=== PATIENT | male | born 1960 | race Caucasian/White ===

== ENCOUNTER 2019-01-16 06:11 | Emergency (ER) | payer OTHER ==
[~2019-01-16 06:11] MED LIST: CYC10 PO; CYCL-343 PO; CYCL10TA29 PO; DIA5 PO; HYDR-3503 PO; IBU800 PO; IBUP-1618 PO; IBUP600T22 PO; KET10 PO; LOR10/500 PO; LOR5 PO; LOR5/325 PO; METH4TAB57 PO; NAP250 PO; NAPR500T75 PO; OXYC-868 PO; PEN250 PO; PER PO; TRA50 PO; VAR1 PO; ZOLP-1 PO; ZOLP-350 PO
--- NOTE | 2019-01-16 06:13 | ER Report ---
History and Physical Time Seen By MD: 06:13 (KENISHA CHAUDHARY DO) Time Seen By MD: 07:04 (KYA OLVERA DO) HPI/ROS CHIEF COMPLAINT: Chest pain, left arm pain HISTORY OF PRESENT ILLNESS: 58-year-old male presents ambulatory to the ER with sudden onset of severe left chest pain and left arm pain and occasionally his left neck around 2 AM. Patient is a smoker. Patient has no previous cardiac h istory. Patient describes a squeezing sensation in his left bicep tendon arm that waxes and wanes like a blood pressure cuff going up and down. It went to work but was feeling dizzy, so he came back home. His brought him to the ER. Patient notes no diaphoresis or nausea. Patient notes no exertional component. Patient has a history of chronic back pain and takes Percocet twice daily. He's had 2 back surgeries and has a herniated disc compressing his sciatic nerve. Patient describes the pain in his chest as a soreness. Patient reports no infectious symptoms such as rhinitis, coughing, sore throat or fever. Patient quit smoking 2 weeks ago as been taking Chantix. REVIEW OF SYSTEMS: Respiratory: No cough, no dyspnea. Cardiovascular: As above Gastrointestinal: No vomiting, no abdominal pain. Musculoskeletal: No back pain. (KENISHA CHAUDHARY DO) HPI/ROS Please see Dr. Chaudhary's note (KYA OLVERA DO) Allergies: Coded Allergies: codeine (Verified Allergy, Intermediate, ITCHING, 01/16/19) gabapentin (Verified Adverse Reaction, Intermediate, "MAKES HIM MEAN AND ANGRY", 01/16/19) Home Meds Active Scripts Oxycodone/Acetaminophen (OXYCODONE/ACETAMINOPHEN 5MG/325 MG) 5 Mg/325 Mg Tab, 1- 2 TAB PO Q6H, #20 TAB One to 2 tabs every 6 hours as needed for severe pain. Prov:JOHN HAUSER [employer]ERIAL EMBALMER 01/01/15 Reported Medications Varenicline Tartrate (CHANTIX) 1 Mg Tablet, 1 MG PO BID 01/16/19 Discontinued Reported Medications Zolpidem Tartrate (AMBIEN) 5 Mg Tablet, 1 TAB PO QHS TAKE ONE TABLET BY MOUTH AT BED TIME 08/29/14 Past Medical/Surgical History Patient has past medical history of back pain, fibromyalgia. Patient has a surgical history tonsillectomy, back surgery, left ulna translocation surgery, hernia repair. Patient has a family history of cancer. Patient smokes tobacco, denies alcohol use or recreational drug use. (KENISHA CHAUDHARY DO) Reviewed Nurses Notes: Yes Old Medical Records Reviewed: Yes (KENISHA CHAUDHARY DO) Hx Smoking: Yes Smoking Status: Current: Every Day Smoker Exposure to Second Hand Smoke?: Yes Hx Substance Use Disorder: No Hx Alcohol Use: No (KENISHA CHAUDHARY DO) Constitutional Vital Sign - Last 24 Hours 01/16/19 01/16/19 01/16/19 01/16/19 06:14 06:15 06:30 06:41 Temp 97.8 Pulse 70 62 Resp 16 B/P (MAP) 126/79 126/79 (95) 110/75 (87) Pulse Ox 98 O2 Delivery Room Air 01/16/19 01/16/19 01/16/19 01/16/19 06:42 07:00 07:11 07:16 Pulse 65 61 Resp 30 18 B/P (MAP) 117/78 (91) 108/75 (86) Pulse Ox 92 93 01/16/19 01/16/19 01/16/19 07:30 07:46 08:00 Pulse 59 Resp 12 B/P (MAP) 101/64 (76) 107/71 (83) Pulse Ox 90 (KYA OLVERA DO) Physical Exam General Appearance: The patient is alert, has no immediate need for airway protection and no current signs of toxicity. Vital signs stable, afebrile, pulse ox normal HEENT: Pupils equal and round no injection. TMs normal, oropharynx no redness or exudate Respiratory: Chest is non tender, lungs are clear to auscultation. No chest wall tenderness, no rash Cardiac: regular rate and rhythm, no murmur Gastrointestinal: Abdomen is soft and non tender, no masses, bowel sounds normal. Musculoskeletal: Neck: Neck is supple and non tender. No JVD, no lymphadenopathy Extremities have full range of motion and are non tender. No edema, no calf tenderness Skin: No rashes or lesions. DIFFERENTIAL DIAGNOSIS: After history and physical exam differential diagnosis was considered for chest pain including but not limited to myocardial ischemia, pericarditis pulmonary embolus, chest wall pain, pleural inflammation and pulmonary infectious causes. (JUANA,KENISHA M DO) Physical Exam Please see Dr. Chaudhary's note (KYA OLVERA DO) Medical Decision Making Data Points Result Diagram: 01/16/19 0620 01/16/19 0620 Laboratory Hematology Test 01/16/19 06:20 01/16/19 07:59 Red Blood Count 6.15 M/uL (4.00-5.60) Mean Corpuscular Volume 84.4 fL (80.0-96.0) Mean Corpuscular Hemoglobin 28.4 pg (26.0-33.0) Mean Corpuscular Hemoglobin Concent 33.7 g/dL (32.0-36.0) Red Cell Distribution Width 15.1 % (11.5-14.5) Mean Platelet Volume 9.3 fL (7.2-11.1) Neutrophils (%) (Auto) 62.1 % (39.4-72.5) Lymphocytes (%) (Auto) 26.5 % (17.6-49.6) Monocytes (%) (Auto) 7.5 % (4.1-12.4) Eosinophils (%) (Auto) 3.2 % (0.4-6.7) Basophils (%) (Auto) 0.7 % (0.3-1.4) Nucleated RBC Relative Count (auto) 0.1 /100WBC Neutrophils # (Auto) 5.0 K/uL (2.0-7.4) Lymphocytes # (Auto) 2.1 K/uL (1.3-3.6) Monocytes # (Auto) 0.6 K/uL (0.3-1.0) Eosinophils # (Auto) 0.3 K/uL (0.0-0.5) Basophils # (Auto) 0.1 K/uL (0.0-0.1) Nucleated RBC Absolute Count (auto) 0.00 K/uL D-Dimer Quantitative (PE/DVT) < 0.27 ug/ml (0-0.50) Sodium Level 138 mmol/L (137-145) Potassium Level 4.0 mmol/L (3.5-5.0) Chloride Level 102 mmol/L (98-107) Carbon Dioxide Level 26 mmol/L (22-30) Blood Urea Nitrogen 14 mg/dl (9-21) Creatinine 1.10 mg/dl (0.66-1.25) Glomerular Filtration Rate Calc > 60.0 Random Glucose 105 mg/dl (75-110) Calcium Level 9.6 mg/dl (8.4-10.2) Total Bilirubin 0.8 mg/dl (0.2-1.3) Aspartate Amino Transf (AST/SGOT) 22 U/L (0-35) Alanine Aminotransferase (ALT/SGPT) 29 U/L (0-56) Alkaline Phosphatase 110 U/L (0-126) B-Type Natriuretic Peptide 13 pg/ml (0-100) Total Protein 7.7 g/dl (6.3-8.2) Albumin 5.0 g/dl (3.5-5.0) Troponin I < 0.012 ng/ml Chemistry Test 01/16/19 06:20 01/16/19 07:59 White Blood Count 8.1 k/uL (4.5-11.0) Red Blood Count 6.15 M/uL (4.00-5.60) Hemoglobin 17.5 g/dL (14.0-18.0) Hematocrit 51.9 % (42.0-52.0) Mean Corpuscular Volume 84.4 fL (80.0-96.0) Mean Corpuscular Hemoglobin 28.4 pg (26.0-33.0) Mean Corpuscular Hemoglobin Concent 33.7 g/dL (32.0-36.0) Red Cell Distribution Width 15.1 % (11.5-14.5) Platelet Count 207 K/uL (150-450) Mean Platelet Volume 9.3 fL (7.2-11.1) Neutrophils (%) (Auto) 62.1 % (39.4-72.5) Lymphocytes (%) (Auto) 26.5 % (17.6-49.6) Monocytes (%) (Auto) 7.5 % (4.1-12.4) Eosinophils (%) (Auto) 3.2 % (0.4-6.7) Basophils (%) (Auto) 0.7 % (0.3-1.4) Nucleated RBC Relative Count (auto) 0.1 /100WBC Neutrophils # (Auto) 5.0 K/uL (2.0-7.4) Lymphocytes # (Auto) 2.1 K/uL (1.3-3.6) Monocytes # (Auto) 0.6 K/uL (0.3-1.0) Eosinophils # (Auto) 0.3 K/uL (0.0-0.5) Basophils # (Auto) 0.1 K/uL (0.0-0.1) Nucleated RBC Absolute Count (auto) 0.00 K/uL D-Dimer Quantitative (PE/DVT) < 0.27 ug/ml (0-0.50) Glomerular Filtration Rate Calc > 60.0 Calcium Level 9.6 mg/dl (8.4-10.2) Total Bilirubin 0.8 mg/dl (0.2-1.3) Aspartate Amino Transf (AST/SGOT) 22 U/L (0-35) Alanine Aminotransferase (ALT/SGPT) 29 U/L (0-56) Alkaline Phosphatase 110 U/L (0-126) B-Type Natriuretic Peptide 13 pg/ml (0-100) Total Protein 7.7 g/dl (6.3-8.2) Albumin 5.0 g/dl (3.5-5.0) Troponin I < 0.012 ng/ml Coagulation Test 01/16/19 06:20 D-Dimer Quantitative (PE/DVT) < 0.27 ug/ml (KYA OLVERA DO) EKG/Imaging EKG Interpretation 12 lead EK Rhythm: normal sinus rhythm [place]: normal QRS: normal ST segments: normal, no evidence of ischemia, no dysrhythmia (KENISHA CHAUHDARY DO) ED Course/Re-evaluation Clinical Indication for ER IV: IV Access ED Course Patient was admitted to an examination room. H&P was done. The differential diagnoses was considered. On clinical examination. Patient has no chest wall tenderness. He has left chest, left arm and left neck pain. He has no associated cardiac symptoms. He is a smoker. With no cardiac history. Patient notes a waxing and waning of the pain in his left bicep area like a blood pressure cuff squeezing. An immediate EKG shows no evidence of ischemia or dysrhythmia. Patient's had pain for over 4 hours. He does admit to feeling dizzy. Patient was medicated with 4 baby aspirin, Toradol 30 mg IV, Dilaudid 1 mg IV and Zofran 4 mg IV. Diagnostic tests are pending. Care was turned over to Dr. Olvera at shift change (KENISHA CHAUDHARY DO) ED Course I assumed patient care from Dr. Chaudhary at 7:00. Initial troponin was negative. I examine the patient and further discussed his history. Patient reported having constant symptoms since 2:00 this morning so a repeat troponin will be collected at 8:00 6 hours post onset. I discussed the plan with the patient and he and his voiced understanding. Repeat troponin was negative. D-dimer was negative. EKG showed no ischemic changes. Chest x-ray showed no acute findings. Patient was advised to closely follow up with his PCP and consider further workup for neck pain likely of musculoskeletal origin. Patient agreed with plan. Return precautions were provided. Decision to Disposition Date: Jan 16, 2019 Decision to Disposition Time: 08:31 (KYA OLVERA DO) Depart Departure Latest Vital Signs Vital Signs Date Time Temp Pulse Resp B/P (MAP) Pulse Ox O2 Delivery O2 Flow Rate FiO2 01/16/19 08:00 107/71 (83) 01/16/19 07:46 59 12 90 01/16/19 06:14 97.8 Room Air (KYA OLVERA DO) Impression: Primary Impression: Neck pain Additional Impression: Chest discomfort Condition: Improved Disposition: HOME OR SELF-CARE Referrals: ENEDINA ESPINOZA (PCP) Patient Instructions: Chest Pain (DC) Additional Instructions: Today your cardiac enzymes were found to be negative which indicates that you are likely not having a heart attack. Your chest x-ray was found to be normal. Please follow up closely in the next 24-48 hours with your family doctor to discuss further workup of your chest discomfort and neck pain. Please return immediately if you have recurrent or worsening symptoms, shortness of breath, fevers, weakness. Problem Qualifiers KENISHA CHAUDHARY DO Jan 16, 2019 06:13 KYA OLVERA DO Jan 16, 2019 07:04
[2019-01-16] MEDS ORDERED: VARE1TAB4 PO (06:19)
[2019-01-16] MEDS ORDERED: ONDANSETRON 4 MG/2 ML VIAL IVP ONE (06:20)
[2019-01-16] MEDS ORDERED: ASPIRIN 81 MG CHEW PO ONE (06:20)
[2019-01-16] MEDS ORDERED: HYDROMORPHONE HCL 1 MG/ML SYRINGE IVP ONE (06:20)
[2019-01-16] MEDS ORDERED: KETOROLAC 30 MG/ML VIAL IVP ONE (06:20)
--- NOTE | 2019-01-16 06:25 | EKG ---
FACILITY: [facility] [place] PATIENT NAME: FEDE ACOSTA : [id number] MR: [id number] V: [id number] EXAM DATE: ORDERING PHYSICIAN: KENISHA ARIAS TECHNOLOGIST: Test Reason : CP Blood Pressure : / mmHG Vent. Rate : 068 BPM Atrial Rate : 068 BPM P-R Int : 132 ms QRS Dur : 092 ms QT Int : 404 ms P-R-T Axes : 066 067 072 degrees QTc Int : 429 ms Normal sinus rhythm Normal ECG No previous ECGs available Confirmed by GENA CAN ([id number]) on 01/16/2019 6:44:20 AM Referred By: Confirmed By:GENA CAN
[2019-01-16 06:32] LABS: PLATELET COUNT, AUTOMATED 207 K/uL (150-450)
--- NOTE | 2019-01-16 06:55 | RADIOLOGY IMAGING REPORT ---
FACILITY: [facility] PATIENT NAME: Pasha Moffett : 1960 MR: [id number] V: [id number] EXAM DATE: ORDERING PHYSICIAN: KENISHA ARIAS TECHNOLOGIST: Location: [facility] Patient: Pasha Moffett : 1960 Visit/Account:[id number] Date of Sevice: 01/16/2019 EXAMINATION: Chest radiographs 2 views HISTORY: Chest pain. COMPARISON: 03/02/2016. FINDINGS: PA and lateral views of the chest are submitted. Lines/tubes: None. Lungs/pleura: No focal consolidation or pleural effusion. Heart: Negative. Mediastinum: Negative. Bony structures/body wall: There is mild kyphosis of the thoracic spine, unchanged. IMPRESSION: No radiographic evidence of acute cardiopulmonary disease. Report Dictated By: Abi Reich MD at 01/16/2019 6:49 AM Report E-Signed By: Abi Reich MD at 01/16/2019 6:51 AM WSN:[id number]
[2019-01-16 08:00] VITALS: BP 107/71
== END 2019-01-16 08:53 | disposition home or self-care (01) ==
LOC: ER 06:46
DX: M54.2 Cervicalgia (principal); R07.9 Chest pain, unspecified
CPT/HCPCS: 36415; 71046; 83880; 84484; 85025; 85379; 93005; 96374; 96375; 99284; J1170; J1885; J2405; 82040; 82247; 82310; 82374; 82435; 82565; 82947; 84075; 84132; 84155; 84295; 84450; 84460; 84520

== ENCOUNTER → 2019-01-17 | Outpatient (CLI) | payer OTHER ==
[~2019-01-17] MED LIST changes: +VARE1TAB4 PO
[2019-01-17 09:06] LABS: PLATELET COUNT, AUTOMATED 185 K/uL (150-450)
[2019-01-17 09:22] LABS: LDL CHOLESTEROL 73 mg/dl
== END ==
LOC: LAB 08:45
PROVIDERS: ATTEND Nurse Practitioner Psychiatric/Mental Health
DX: Z00.00 Encounter for general adult medical examination without abnormal findings (principal)
CPT/HCPCS: 36415; 82040; 82247; 82310; 82374; 82435; 82465; 82565; 82947; 83540; 83718; 84075; 84132; 84155; 84295; 84443; 84450; 84460; 84478; 84520; 85025